=== PATIENT | female | born 1995 | race African-American/Black ===

== ENCOUNTER → 2023-04-24 | Outpatient (REF) | payer OTHER ==
[2023-04-24 23:16] LABS: CHLAMYDIA DNA AMPLIFICATION NEGATIVE (NEGATIVE); GC DNA AMPLIFICATION NEGATIVE (NEGATIVE)
== END ==
LOC: M LAB REF 16:10
PROVIDERS: ATTEND Nurse Practitioner Family
DX: N76.0 Acute vaginitis (principal); R30.0 Dysuria

== ENCOUNTER 2024-01-25 12:27 | Outpatient (CLI) | payer OTHER ==
[~2024-01-25] VITALS: Ht 167.6 cm; Wt 80.5 kg
[~2024-01-25 12:27] MED LIST: ALBUTEROL SULFATE 2.5MG/0.5ML INH NEB SOLN INH PRN; EPINEPHrine INJ 1 MG/ML 1ML AMP IM PRN; diphenhydrAMINE 50MG/ML VIAL IV PRN; methylPREDNISolone 125MG 2ML VIAL IV PRN
[2024-01-25] MEDS ORDERED: NS 1,000 ML IV SCH (12:30)
[2024-01-25 12:35] VITALS: BP 123/68; O2SAT 100
[2024-01-25] MEDS: FERRIC CARBOXYMALTOSE INJ 750 MG in NS 250 ML (>50kg) IV ONE (12:48)
[2024-01-25 14:05] VITALS: BP 123/69; O2SAT 100
== END 2024-01-25 14:10 ==
LOC: M INFU 12:27
PROVIDERS: ATTEND Internal Medicine
DX: D64.9 Anemia, unspecified (principal)
CPT/HCPCS: 96365; J1439

== ENCOUNTER 2024-02-01 13:15 | Outpatient (CLI) | payer OTHER ==
[~2024-02-01] VITALS: Ht 167.6 cm; Wt 80.5 kg
[~2024-02-01 13:15] MED LIST changes: +NS 1,000 ML IV SCH
[2024-02-01 13:20] VITALS: BP 132/73; O2SAT 100
[2024-02-01] MEDS: FERRIC CARBOXYMALTOSE INJ 750 MG in NS 250 ML (>50kg) IV ONE (13:27)
[2024-02-01 14:35] VITALS: BP 134/78; O2SAT 100
== END 2024-02-01 14:35 ==
LOC: M INFU 13:15
PROVIDERS: ATTEND Internal Medicine
DX: D64.9 Anemia, unspecified (principal)
CPT/HCPCS: 96365; J1439

== ENCOUNTER → 2024-05-16 | Outpatient (CLI) | payer OTHER ==
[~2024-05-16] MED LIST changes: -ALBUTEROL SULFATE 2.5MG/0.5ML INH NEB SOLN INH PRN; -EPINEPHrine INJ 1 MG/ML 1ML AMP IM PRN; +ISOVUE-370 76% 100ML VIAL As Ordered ONE; -NS 1,000 ML IV SCH; -diphenhydrAMINE 50MG/ML VIAL IV PRN; -methylPREDNISolone 125MG 2ML VIAL IV PRN
== END ==
LOC: M RADPRO 12:14
PROVIDERS: ATTEND General Practice
DX: N97.9 Female infertility, unspecified (principal)
CPT/HCPCS: 58340; 74740; Q9967